=== PATIENT | male | born 1985 | race Caucasian/White ===

== ENCOUNTER 2018-12-27 19:55 | Emergency (ER) | payer OTHER ==
[~2018-12-27] VITALS: Ht 172.7 cm; Wt 87.6 kg
[2018-12-27 20:16] VITALS: Ht 172.7 cm; Wt 87.6 kg
[2018-12-27] MEDS ORDERED: ONDANSETRON (ODT) 4 MG TAB ODT STA (20:30)
[2018-12-27] MEDS ORDERED: HYDROCODONE/APAP (10/325) TAB PO ONE (20:30)
[2018-12-27] MEDS ORDERED: IBUP800T48 PO (21:21)
[2018-12-27] MEDS ORDERED: ONDA4TAB14 PO (21:21)
[2018-12-27] MEDS ORDERED: NALO4SPR NS (21:21)
[2018-12-27] MEDS ORDERED: HYDR-3980 PO (21:21)
--- NOTE | 2018-12-27 21:26 | ERD ---
ER Documentation Chief Complaint Chief Complaint left shoulder pain while doing [employer] about 1 hour ago. poss dislocation HPI 33-year-old male who presents to the emergency room with left shoulder pain status post fall approximately 1 hour ago. The patient fell on the left shoulder, adducted. The patient now notes pain to the AC joint and clavicle of the left shoulder. The patient is slightly limited range of motion. He denies any head injury or loss of consciousness. The pain is 8 out of 10 and throbbing and worse with movement. ROS All systems reviewed and are negative except as per history of present illness. Medications Home Meds Active Scripts Naloxone HCl nasal spray (Narcan 4 mg/0.1 mL nasal) 4 Mg [place], 4 MG NS .Q2-3MIN for OPIOID OVERDOSE, #2 SPRAY 0 Refills Somerset 0.1 mL into one nostril. Repeat with second device into other nostril after 2-3 minutes if no or minimal response Prov:PRABHU HART MD 12/27/18 Ibuprofen* (Motrin*) 800 Mg Tab, 800 MG PO Q6H PRN for PAIN AND OR ELEVATED TEMP, #30 TAB Prov:PRABHU HART MD 12/27/18 Ondansetron (Ondansetron Odt) 4 Mg Tab.rapdis, 4 MG PO Q6H PRN for NAUSEA AND/OR VOMITING, #10 TAB Prov:PRABHU HART MD 12/27/18 Hydrocodone/Acetaminophen (Nocona 10-325 Tablet) 1 Each Tablet, 1 TAB PO Q6H PRN for PAIN, #10 TAB Prov:PRABHU HART MD 12/27/18 Allergies Allergies: Coded Allergies: No Known Drug Allergies (Verified Allergy, Unknown, 12/27/18) FmHx Family History: No diabetes Physical Exam Vitals Vital Signs Date Temp Pulse Resp B/P (MAP) Pulse Ox O2 O2 Flow FiO2 Time Delivery Rate 12/27/18 97.7 80 18 146/93 99 20:16 (110) Physical Exam General: Well developed, well nourished, no acute distress Head: Normocephalic, atraumatic. Eyes: Pupils equally reactive, EOM intact ENT: Moist mucous membranes Neck: Supple, no lymphadenopathy Respiratory: Lungs clear bilaterally, no distress Cardiovascular: RRR, no murmurs, rubs, or gallops Abdominal: Soft, non-tender, non-distended, no peritoneal signs : Deferred MSK: Left upper extremity with soft tissue tenderness at the AC joint with deformity noted. No tenderness to the midshaft clavicle. The patient's shoulder joint itself has no focal tenderness deformities or squaring of the shoulder. The patient is actually able to range the shoulder. Radial, median, ulnar, axillary nerves are intact. The patient's left upper extremity is neurovascular intact distally. Neurologic: Alert and oriented, moving all extremities, normal speech, no focal weakness, no cerebellar signs Skin: No rash Psych: Normal mood Results 24 hrs Current Medications Medications Dose Sig/Cornelia Start Time Status Last (Trade) Ordered Route PRN Stop Time Admin Dose Reason Admin 1 tab ONCE ONCE 12/27/18 DC 12/27/18 Acetaminophen PO 20:30 21:01 / 12/27/18 20:31 Hydrocodone Bitart (Nocona (10/325)) Ondansetron 4 mg ONCE STAT 12/27/18 DC 12/27/18 HCl (Zofran ODT 20:30 21:01 Odt) 12/27/18 20:31 Procedures/MDM EKG, MONITORS, & DIAGNOSTIC IMAGING: X-ray left shoulder: I reviewed and interpreted multiple views of the x-ray Bones: Widening of the AC joint Soft tissue: No evidence of foreign body PROCEDURES: My sling splint Application Note: Splint type: sling Extremity: lue Indication: AC separation The patient was consented at bedside prior to splint application and states understanding of risks, benefits, and alternatives. The patient was neurovascularly intact prior to and status post application of the splint. The patient tolerated the procedure well and there were no complications. MEDICAL DECISION MAKING: The patient's clinical exam is consistent with clavicle fracture versus AC separation. Low clinical concern for dislocation. X-ray imaging appropriate. ER COURSE: * Patient's pain is well controlled with Nocona * sling provided * The patient's x-ray confirms AC separation. The patient is placed in a sling, outpatient orthopedic follow-up appropriate. CONSULTATION: None DISPOSITION PLAN: The patient does not have an identifiable emergent medical condition that warrants inpatient hospitalization at this time. The patient is deemed safe for discharge with outpatient follow-up. We discussed follow up with the patient's primary care doctor within 24 to 48 hours as needed. We also discussed return to the emergency room for worsening symptoms or worsening condition. Outpatient referral: Orthopedic surgeon Discharge Medications: Nocona, Zofran, Motrin NARCOTIC MEDICATION: The patient has been prescribed a narcotic medication during this encounter. The patient has been warned about the use of narcotics. The patient should not drive or operate heavy machinery while taking this medication. The patient was also warned about the addictive properties of narcotic medications. Narcan prescription WAS provided given one of the following criteria were met: 1. More than 5 tablets of Nocona 10 mg or 10 tablets of Nocona 5 mg were prescribed. 2. Concomitant opiate and benzodiazepine prescriptions were provided. 3. There is evidence of prior history of opiate abuse or overdose. Departure Diagnosis: Primary Impression: Acromioclavicular joint separation Encounter type: initial encounter Laterality: left Qualified Codes: S43.102A - Unspecified dislocation of left acromioclavicular joint, initial encounter Condition: Stable Patient Instructions: Dislocation, Other Joint Referrals: [facility] YOU HAVE RECEIVED A MEDICAL SCREENING EXAM AND THE RESULTS INDICATE THAT YOU DO NOT HAVE A CONDITION THAT REQUIRES URGENT TREATMENT IN THE EMERGENCY DEPARTMENT. FURTHER EVALUATION AND TREATMENT OF YOUR CONDITION CAN WAIT UNTIL YOU ARE SEEN IN YOUR DOCTORS OFFICE WITHIN THE NEXT 1-2 DAYS. IT IS YOUR RESPONSIBILITY TO MAKE AN APPOINTMENT FOR FOLOW-UP CARE. IF YOU HAVE A PRIMARY DOCTOR --you should call your primary doctor and schedule an appointment IF YOU DO NOT HAVE A PRIMARY DOCTOR YOU CAN CALL OUR PHYSICIAN REFERRAL HOTLINE AT IF YOU CAN NOT AFFORD TO SEE A PHYSICIAN YOU CAN CHOSE FROM THE FOLLOWING [facility] CLINICS [facility] [address] [facility]. [facility] [address] [facility]. [facility] [address] [facility]. [facility] [address] [facility]. [facility] [address] [facility]. [facility]. [address] [facility]. [facility] YOU HAVE RECEIVED A MEDICAL SCREENING EXAM AND THE RESULTS INDICATE THAT YOU DO NOT HAVE A CONDITION THAT REQUIRES URGENT TREATMENT IN THE EMERGENCY DEPARTMENT. FURTHER EVALUATION AND TREATMENT OF YOUR CONDITION CAN WAIT UNTIL YOU ARE SEEN IN YOUR DOCTORS OFFICE WITHIN THE NEXT 1-2 DAYS. IT IS YOUR RESPONSIBILITY TO MAKE AN APPOINTMENT FOR FOLOW-UP CARE. IF YOU HAVE A PRIMARY DOCTOR --you should call your primary doctor and schedule and appointment IF YOU DO NOT HAVE A PRIMARY DOCTOR YOU CAN CALL OUR PHYSICIAN REFERRAL HOTLINE AT . IF YOU CAN NOT AFFORD TO SEE A PHYSICIAN YOU CAN CHOSE FROM THE FOLLOWING [facility] INSTITUTIONS: [facility] [address] [place] [address] [facility] [address] [place] [address] [facility] + [facility] [address] [place] [address] [facility] Urgent Care 7 a.m.- 11 p.m. Every Day of the Week NO APPOINTMENT OR AUTHORIZATION NEEDED SO [facility] Hours: Mon-Fri 9:00 AM - 5:00 PM Additional Instructions: Call your primary care doctor TOMORROW for an appointment during the next [address].Tell the construction secretary that you were referred from this facility.See the doctor sooner or return here if your condition worsens before your appointment time. PRABHU HART MD Dec 27, 2018 21:26
[2018-12-27 22:38] VITALS: BP 150/71; PULSE 81; RESP 18
== END 2018-12-27 22:38 | disposition home or self-care (01) ==
LOC: E/R 19:55
DX: S43.102A Unspecified dislocation of left acromioclavicular joint, initial encounter (principal); W18.39XA Other fall on same level, initial encounter; Y92.9 Unspecified place or not applicable
CPT/HCPCS: 73000; 73030